=== PATIENT | male | born 1985 | race Two or more races ===

== ENCOUNTER 2020-10-24 21:41 | Inpatient (IN) | payer MEDICAID ==
[~2020-10-24] VITALS: Ht 177.8 cm; Wt 81.1 kg
[2020-10-24 23:00] LABS: Basophils # (auto) 0 10 ^3/uL (0-0.2); Basophils % (auto) 0.8 % (0.0-2.0); Eosinophils # (auto) 0 10 ^3/uL (0-0.8); Eosinophils % (auto) 0.8 % (0.0-7.0); Hematocrit 34.3 % (41.0-53.0); Hemoglobin 11.1 g/dL (13.5-17.5); Lymphocytes # (auto) 0.6 10 ^3/uL (0.4-5.4); Lymphocytes % (auto) 15.9 % (10.0-50.0); Mean Corpuscular Hemoglobin 29.3 pg (28.0-32.0); Mean Corpuscular Hgb Conc. 32.5 g/dL (32.0-36.0); Mean Corpuscular Volume 90.1 fL (80.0-100.0); Monocytes # (auto) 0.2 10 ^3/uL (0-1.3); Monocytes % (auto) 4.2 % (0.0-12.0); Neutrophils % (auto) 78.3 % (37.0-80.0); Platelet Count (auto) 309 10^3/uL (140-450); Red Blood Cells 3.81 10^6/uL (4.5-5.90); White Blood Cell 3.8 10^3/uL (4.4-10.8)
[2020-10-24 23:10] LABS: Albumin 1.2 g/dL (3.4-5.0); Anion Gap 12 (5-15); Blood Urea Nitrogen 32 mg/dL (7-18); Calcium 7.3 mg/dL (8.5-10.1); Carbon Dioxide 26 mmol/L (21-32); Chloride 91 mmol/L (98-107); Glucose 244 mg/dL (74-106); Potassium 3.3 mmol/L (3.5-5.1); Sodium 129 mmol/L (136-145)
[2020-10-24 23:13] LABS: Alanine Aminotransferase 9 U/L (16-61); Aspartate Aminotransferase 9 U/L (15-37); BUN/Creatinine Ratio 4.3; GFR African American 11 mL/min; GFR Non-African American 9 mL/min
[2020-10-24 23:17] LABS: Alkaline Phosphatase 151 U/L (45-117); Bilirubin, Total 0.5 mg/dL (0.2-1.0); Total Protein 5.3 g/dL (6.4-8.2)
[2020-10-24 23:41] LABS: INR 1.05 (0.9-1.15)
[2020-10-25] MEDS ORDERED: CEFEPIME 2 GM in SODIUM CHL 0.9% 50 ML IV ONE (00:30)
[2020-10-25] MEDS ORDERED: VANCOMYCIN 1GM/250ML 250 ML IV ONE (00:30)
[2020-10-25] MEDS ORDERED: MORPHINE SULF INJ 2 MG/ML SYRINGE 1ML IV PRN (06:30)
[2020-10-25] MEDS ORDERED: DEXTROSE (50%) 50ML SYRG IV PRN (06:30)
[2020-10-25] MEDS ORDERED: NITROGLYCERIN 0.4 MG SL TAB SL PRN (06:30)
[2020-10-25] MEDS: InsuLIN REG 1unit/0.01ml Soln (100units/ml) SC SCH ×4 (07:00→21:06)
[2020-10-25 08:13] LABS: Albumin 1.1 g/dL (3.4-5.0); Calcium 7.1 mg/dL (8.5-10.1); Potassium 3.6 mmol/L (3.5-5.1)
[2020-10-25 08:14] LABS: Hematocrit 34.3 % (41.0-53.0); Hemoglobin 11.3 g/dL (13.5-17.5); Mean Corpuscular Hemoglobin 29.7 pg (28.0-32.0); Mean Corpuscular Hgb Conc. 32.8 g/dL (32.0-36.0); Mean Corpuscular Volume 90.5 fL (80.0-100.0); Platelet Count (auto) 200 10^3/uL (140-450); Red Blood Cells 3.79 10^6/uL (4.5-5.90); Red Cell Distribution Width 15.7 % (11.8-14.3); White Blood Cell 10.8 10^3/uL (4.4-10.8)
[2020-10-25 08:16] LABS: BUN/Creatinine Ratio 4.6; Bilirubin, Total 0.4 mg/dL (0.2-1.0); Total Protein 5.4 g/dL (6.4-8.2)
[2020-10-25] MEDS: ACCU-CHEK COMFORT CURVE STRIP VI SCH ×4 (08:17→21:05)
[2020-10-25 09:00] LABS: Basophils % (manual) 0 (0.0-2.0); Eosinophils % (manual) 0 (0-7)
[2020-10-25 09:01] LABS: Blast Cells 0; Promyelocytes % 0; Reactive Lymphocytes 0
[2020-10-25] MEDS: cefTRIAXone 1GM/50ML D5W 50 ML IV SCH (09:14)
[2020-10-25] MEDS ORDERED: ALBUMIN 25% 50 ML IV SCH (09:30)
[2020-10-25] MEDS: AZITHROMYCIN 500MG/ 250ML 250 ML IV SCH (10:58)
[2020-10-25] MEDS: DexAMETHasone SOD PHOS 10MG/1ML VIAL INJ IV SCH (10:58)
[2020-10-25] MEDS: ZINC SULFATE 220mg CAP or TAB PO SCH (10:59)
[2020-10-25] MEDS: CHOLECALCIFEROL (VITD3) 2,000 UNIT CAP/TAB PO SCH (10:59)
[2020-10-25] MEDS: ASCORBIC ACID 500 MG TAB PO SCH ×2 (10:59→21:06)
[2020-10-25] MEDS ORDERED: ISOS20TA5 PO (12:12)
[2020-10-25] MEDS ORDERED: INSU100I44 SC (12:12)
[2020-10-25 12:13] LABS: Band Neutrophils % (manual) 26; Lymphocytes % (manual) 7 (10.0-50.0); Metamyelocytes % 5; Monocytes % (manual) 4 (0-12); Myelocytes % 3
[2020-10-25] MEDS ORDERED: LISI40TA11 PO (12:13)
[2020-10-25] MEDS ORDERED: FURO40TA4 PO (12:13)
[2020-10-25] MEDS ORDERED: SERT-274 PO (12:15)
[2020-10-25] MEDS ORDERED: INSU1INJ19 SC (12:21)
[2020-10-25] MEDS ORDERED: SUCR1TAB22 PO (12:21)
[2020-10-25] MEDS ORDERED: ERGO1CAP23 PO (12:21)
[2020-10-25] MEDS ORDERED: ALBUTEROL SULF HFA 90MCG INH 200DOSE IN SCH (14:00)
[2020-10-25] MEDS: hydrALAZINE HCL 20 MG/ML VL IV PRN (15:00)
[2020-10-25] MEDS ORDERED: REMDESIVIR PER PHARMACY 0 ML IV SCH (17:45)
[2020-10-25 19:51] LABS: Basophils # (auto) 0 10 ^3/uL (0-0.2); Basophils % (auto) 0.3 % (0.0-2.0); Eosinophils # (auto) 0 10 ^3/uL (0-0.8); Hematocrit 34.4 % (41.0-53.0); Hemoglobin 11.3 g/dL (13.5-17.5); Lymphocytes # (auto) 0.6 10 ^3/uL (0.4-5.4); Lymphocytes % (auto) 4.3 % (10.0-50.0); Mean Corpuscular Hemoglobin 29.1 pg (28.0-32.0); Mean Corpuscular Hgb Conc. 32.8 g/dL (32.0-36.0); Mean Corpuscular Volume 88.9 fL (80.0-100.0); Monocytes # (auto) 0.3 10 ^3/uL (0-1.3); Monocytes % (auto) 2.1 % (0.0-12.0); Neutrophils # (auto) 13.9 10 ^3/uL (1.6-8.6); Neutrophils % (auto) 93.3 % (37.0-80.0); Platelet Count (auto) 291 10^3/uL (140-450); Red Blood Cells 3.87 10^6/uL (4.5-5.90); Red Cell Distribution Width 15.8 % (11.8-14.3); White Blood Cell 14.9 10^3/uL (4.4-10.8)
[2020-10-25 19:56] LABS: Albumin 1.4 g/dL (3.4-5.0); BUN/Creatinine Ratio 5.1; Calcium 7.1 mg/dL (8.5-10.1); Magnesium 2.7 mg/dL (1.6-2.6); Potassium 4.1 mmol/L (3.5-5.1)
[2020-10-25 19:59] LABS: Lactic Acid w/Reflex 2.3 mmol/L (0.4-2.0)
[2020-10-25] MEDS ORDERED: REMDESIVIR 200 MG in NS 210ml LOADING DOSE ADULT IV ONE (20:00)
[2020-10-25 20:06] LABS: Bilirubin, Total 0.4 mg/dL (0.2-1.0); CRP High Sensitivity 17.5 mg/dL (< 0.3)
[2020-10-26] MEDS: InsuLIN REG 1unit/0.01ml Soln (100units/ml) SC SCH ×4 (05:58→21:08)
[2020-10-26] MEDS: ACCU-CHEK COMFORT CURVE STRIP VI SCH ×4 (06:14→21:10)
[2020-10-26 07:24] LABS: Basophils # (auto) 0 10 ^3/uL (0-0.2); Basophils % (auto) 0.3 % (0.0-2.0); Eosinophils # (auto) 0 10 ^3/uL (0-0.8); Hematocrit 35.8 % (41.0-53.0); Lymphocytes # (auto) 0.8 10 ^3/uL (0.4-5.4); Lymphocytes % (auto) 5.1 % (10.0-50.0); Mean Corpuscular Hemoglobin 29.3 pg (28.0-32.0); Mean Corpuscular Hgb Conc. 33.4 g/dL (32.0-36.0); Mean Corpuscular Volume 87.7 fL (80.0-100.0); Monocytes # (auto) 0.8 10 ^3/uL (0-1.3); Monocytes % (auto) 5.6 % (0.0-12.0); Neutrophils # (auto) 13.4 10 ^3/uL (1.6-8.6); Platelet Count (auto) 322 10^3/uL (140-450); Red Blood Cells 4.09 10^6/uL (4.5-5.90)
[2020-10-26 07:42] LABS: Potassium 4.3 mmol/L (3.5-5.1)
[2020-10-26 08:03] LABS: Albumin 1.4 g/dL (3.4-5.0); BUN/Creatinine Ratio 5.5; Bilirubin, Total 0.4 mg/dL (0.2-1.0); Calcium 7.5 mg/dL (8.5-10.1); Total Protein 5.9 g/dL (6.4-8.2)
[2020-10-26] MEDS ORDERED: ALBUTEROL SULF HFA 90MCG INH 200DOSE IN PRN (09:00)
[2020-10-26] MEDS: AZITHROMYCIN 500MG/ 250ML 250 ML IV SCH (09:50)
[2020-10-26] MEDS: cefTRIAXone 1GM/50ML D5W 50 ML IV SCH (09:50)
[2020-10-26] MEDS: ASCORBIC ACID 500 MG TAB PO SCH ×2 (09:50→21:10)
[2020-10-26] MEDS: ZINC SULFATE 220mg CAP or TAB PO SCH (09:50)
[2020-10-26] MEDS: DexAMETHasone SOD PHOS 10MG/1ML VIAL INJ IV SCH (09:50)
[2020-10-26] MEDS: CHOLECALCIFEROL (VITD3) 2,000 UNIT CAP/TAB PO SCH (09:50)
[2020-10-26] MEDS ORDERED: REMDESIVIR 100mg 100 MG in SODIUM CHL 0.9% 230 ML IV SCH (15:00)
[2020-10-26 20:30] VITALS: BP 138/98
[2020-10-26 23:41] VITALS: BP 138/98
[2020-10-27] MEDS: InsuLIN REG 1unit/0.01ml Soln (100units/ml) SC SCH ×4 (06:36→22:00)
[2020-10-27] MEDS: ACCU-CHEK COMFORT CURVE STRIP VI SCH ×4 (06:36→22:01)
[2020-10-27 08:29] VITALS: BP 143/102
[2020-10-27] MEDS: DexAMETHasone SOD PHOS 10MG/1ML VIAL INJ IV SCH (08:47)
[2020-10-27] MEDS: cefTRIAXone 1GM/50ML D5W 50 ML IV SCH (08:47)
[2020-10-27] MEDS: ZINC SULFATE 220mg CAP or TAB PO SCH (08:48)
[2020-10-27] MEDS: CHOLECALCIFEROL (VITD3) 2,000 UNIT CAP/TAB PO SCH (08:48)
[2020-10-27] MEDS: ASCORBIC ACID 500 MG TAB PO SCH ×2 (08:48→22:00)
[2020-10-27] MEDS: AZITHROMYCIN 500MG/ 250ML 250 ML IV SCH (08:50)
[2020-10-27 16:00] VITALS: BP 153/109
[2020-10-27] MEDS: INSULIN LANTUS (GLARGINE) 1 /0.01ml (100units/ml) SC SCH (16:29)
[2020-10-27] MEDS: PANTOPRAZOLE 40 MG TAB PO SCH (16:40)
[2020-10-27 18:47] LABS: Albumin 1.4 g/dL (3.4-5.0); Calcium 7.5 mg/dL (8.5-10.1)
[2020-10-27 18:51] LABS: BUN/Creatinine Ratio 6.4; Basophils # (auto) 0 10 ^3/uL (0-0.2); Basophils % (auto) 0.3 % (0.0-2.0); Bilirubin, Total 0.3 mg/dL (0.2-1.0); Eosinophils # (auto) 0 10 ^3/uL (0-0.8); Hematocrit 33.7 % (41.0-53.0); Hemoglobin 11.1 g/dL (13.5-17.5); Lymphocytes # (auto) 0.5 10 ^3/uL (0.4-5.4); Lymphocytes % (auto) 5.5 % (10.0-50.0); Mean Corpuscular Hemoglobin 29.4 pg (28.0-32.0); Mean Corpuscular Hgb Conc. 32.9 g/dL (32.0-36.0); Mean Corpuscular Volume 89.2 fL (80.0-100.0); Monocytes # (auto) 0.2 10 ^3/uL (0-1.3); Monocytes % (auto) 2.3 % (0.0-12.0); Neutrophils # (auto) 7.8 10 ^3/uL (1.6-8.6); Neutrophils % (auto) 91.9 % (37.0-80.0); Platelet Count (auto) 267 10^3/uL (140-450); Red Blood Cells 3.78 10^6/uL (4.5-5.90); Red Cell Distribution Width 15.7 % (11.8-14.3); Total Protein 5.6 g/dL (6.4-8.2); White Blood Cell 8.5 10^3/uL (4.4-10.8)
[2020-10-27] MEDS: ALBUTEROL SULF HFA 90MCG INH 200DOSE IN PRN (20:20)
[2020-10-28 00:22] VITALS: BP 151/95
[2020-10-28] MEDS: hydrALAZINE HCL 20 MG/ML VL IV PRN (02:03)
[2020-10-28 03:11] VITALS: BP 125/88
[2020-10-28 06:32] LABS: Basophils # (auto) 0 10 ^3/uL (0-0.2); Basophils % (auto) 0.2 % (0.0-2.0); Eosinophils # (auto) 0 10 ^3/uL (0-0.8); Hematocrit 32.7 % (41.0-53.0); Hemoglobin 10.9 g/dL (13.5-17.5); Lymphocytes # (auto) 1.2 10 ^3/uL (0.4-5.4); Lymphocytes % (auto) 10.3 % (10.0-50.0); Mean Corpuscular Hemoglobin 29.1 pg (28.0-32.0); Mean Corpuscular Hgb Conc. 33.3 g/dL (32.0-36.0); Mean Corpuscular Volume 87.2 fL (80.0-100.0); Monocytes # (auto) 0.8 10 ^3/uL (0-1.3); Monocytes % (auto) 6.4 % (0.0-12.0); Neutrophils # (auto) 9.8 10 ^3/uL (1.6-8.6); Neutrophils % (auto) 83.1 % (37.0-80.0); Platelet Count (auto) 284 10^3/uL (140-450); Red Blood Cells 3.75 10^6/uL (4.5-5.90); Red Cell Distribution Width 15.4 % (11.8-14.3); White Blood Cell 11.8 10^3/uL (4.4-10.8)
[2020-10-28] MEDS: ACCU-CHEK COMFORT CURVE STRIP VI SCH ×3 (06:34→17:01)
[2020-10-28] MEDS: InsuLIN REG 1unit/0.01ml Soln (100units/ml) SC SCH ×3 (06:34→17:50)
[2020-10-28 06:48] LABS: Albumin 1.5 g/dL (3.4-5.0); Calcium 7.7 mg/dL (8.5-10.1); Potassium 3.5 mmol/L (3.5-5.1)
[2020-10-28 06:53] LABS: BUN/Creatinine Ratio 6.3; Bilirubin, Total 0.4 mg/dL (0.2-1.0); Total Protein 5.8 g/dL (6.4-8.2)
[2020-10-28 08:00] VITALS: BP 151/103
[2020-10-28] MEDS ORDERED: ZINC SULFATE 220mg CAP or TAB PO SCH (10:00)
[2020-10-28] MEDS ORDERED: CHOLECALCIFEROL (VITD3) 2,000 UNIT CAP/TAB PO SCH (10:00)
[2020-10-28] MEDS: ASCORBIC ACID 500 MG TAB PO SCH (10:04)
[2020-10-28] MEDS: PANTOPRAZOLE 40 MG TAB PO SCH (10:04)
[2020-10-28] MEDS: cefTRIAXone 1GM/50ML D5W 50 ML IV SCH (10:05)
[2020-10-28] MEDS: DexAMETHasone SOD PHOS 10MG/1ML VIAL INJ IV SCH (10:05)
[2020-10-28] MEDS: AZITHROMYCIN 500MG/ 250ML 250 ML IV SCH (11:40)
[2020-10-28] MEDS: INSULIN LANTUS (GLARGINE) 1 /0.01ml (100units/ml) SC SCH (13:02)
[2020-10-28] MEDS ORDERED: CALCIUM CARB 500 MG CHEW TAB PO PRN (14:45)
[2020-10-28 16:00] VITALS: BP 132/87
[2020-10-28] MEDS ORDERED: INSULIN LANTUS (GLARGINE) 1 /0.01ml (100units/ml) SC SCH (17:45)
[2020-10-28] MEDS ORDERED: ASCO500T11 PO (17:53)
[2020-10-28] MEDS ORDERED: DEXA6TAB6 PO (17:53)
[2020-10-28] MEDS ORDERED: ALBUAER3 IN (17:53)
[2020-10-28] MEDS ORDERED: AZIT250T8 PO (17:53)
[2020-10-28] MEDS ORDERED: PANT40T PO (17:53)
[2020-10-28] MEDS ORDERED: INSU1INJ19 SC (17:53)
[2020-10-28] MEDS ORDERED: ZINC220C8 PO (17:53)
[2020-10-28 18:48] VITALS: BP 132/87
[2020-10-28] MEDS: ALBUTEROL SULF HFA 90MCG INH 200DOSE IN PRN (19:15)
[2020-10-28 22:00] VITALS: BP 132/83
== END 2020-10-28 22:25 | disposition home health service (06) | DRG 720 ==
LOC: EDBD 21:41 → ER 21:44 → OVERFLOW 21:45 → TELE-WESTW 10-26 20:24
PROVIDERS: ADMIT Hospitalist; ATTEND Hospitalist
PROC: XW033E5 Introduction of Remdesivir Anti-infective into Peripheral Vein, Percutaneous Approach, New Technology Group 5 (ICD-10-PCS; principal; 2020-10-25)
DX: A41.89 Other specified sepsis (principal); U07.1 COVID-19; J96.01 Acute respiratory failure with hypoxia; N18.6 End stage renal disease; E10.22 Type 1 diabetes mellitus with diabetic chronic kidney disease; F32.9 Major depressive disorder, single episode, unspecified; J12.82 Pneumonia due to coronavirus disease 2019; D89.839 Cytokine release syndrome, grade unspecified; Z99.2 Dependence on renal dialysis; Z79.4 Long term (current) use of insulin; Z79.899 Other long term (current) drug therapy; Z83.3 Family history of diabetes mellitus; Z83.511 Family history of glaucoma; J91.8 Pleural effusion in other conditions classified elsewhere; E43 Unspecified severe protein-calorie malnutrition; J98.11 Atelectasis; I12.0 Hypertensive chronic kidney disease with stage 5 chronic kidney disease or end stage renal disease; E87.6 Hypokalemia; E87.1 Hypo-osmolality and hyponatremia; E87.70 Fluid overload, unspecified; K66.8 Other specified disorders of peritoneum
CPT/HCPCS: 36415; 36600; 71045; 71250; 74176; 80053; 82306; 82728; 82805; 82962; 83036; 83605; 83615; 83735; 83880; 84443; 84484; 85007; 85025; 85027; 85379; 85610; 86141; 87040; 87081; 87426; 93005; 93970; 94640; 96365; G0378; J0696; J1100; J1815